=== PATIENT | male | born 1960 | race Caucasian/White ===

== ENCOUNTER → 2021-08-02 | Day surgery (SDC) | payer OTHER ==
[~2021-08-02] VITALS: Ht 175.3 cm; Wt 84.6 kg
[2021-08-02] VITALS (7 sets, daily range): BP systolic 124–147; BP diastolic 67–84
[~2021-08-02] MED LIST: BUPIVAcaine/PF 2.5 mg/ml (0.25%) 30ml vial ONE; NO HOME MEDS; cefazolin/dext.iso 2gm/50ml 50 ML IV ONE; dexamethasone sod phosphate 4mg/ml inj. ONE; ePHEDrine 50MG/ML INJ. ONE; famotidine 20mg tablet PO ONE; fentaNYL/PF 50MCG/1 ML 2ML syringe ONE; meperidine/PF 25mg/ml syringe IV PRN; midazolam 1 mg/ML 2ml injection ONE; morphine 2 MG/ML inj. syringe IV PRN; morphine 4 MG/ML inj SYRINge IV PRN; ondansetron/PF 4mg/2ml inj IV PRN; proCHLORperazine 10 MG/2 ml inj IV PRN; propofol inj 20 ML IV ONE; ringers solution, lacted 1,000 ML IV SCH; sevoflurane 250ml liquid IH ONE; vancomycin 1,000mg inj ONE
[2021-08-02 09:24] LABS: ALBUMIN 3.8 G/DL (3.4-5.0); ALKALINE PHOSPHATASE 94 IU/L (46-116); BLOOD UREA NITROGEN 13 MG/DL (7-18); CALCIUM 9.2 MG/DL (8.5-10.1); CHLORIDE 108 MMOL/L (99-107); PRE OP ALT 52 U/L (30-65); PRE OP ANION GAP 10 (8-16); PRE OP AST 31 U/L (10-37); PRE OP BILIRUB, TOTAL 0.4 MG/DL (0.0-1.0); PRE OP GLUCOSE 89 MG/DL (70-104); PRE OP POTASSIUM 3.9 MMOL/L (3.4-5.1); PRE OP SODIUM 144 MMOL/L (135-145); TOTAL CARBON DIOXIDE 26.5 MMOL/L (24-32); TOTAL PROTEIN 7.7 G/DL (6.4-8.2); eGFR 77 ML/MIN
--- NOTE | 2021-08-02 13:12 | NUR ---
Received from OR via [facility] , accompanied by Anesthesiologist JUAN CARLOS and report given by Anesthesiolgist. PATIENT WITH 20G PIV IN RIGHT UE RUNNING LR AT 100. DENIES PAIN AT THIS TIME. ANTERIOR LEFT SHOULDER/ CLAVICLE DRESSING IS CDI. VSS Addendum: 08/02/21 at 1322 by Abelardo Barr RN, RN Amended: Links added.
--- NOTE | 2021-08-02 13:12 | NUR ---
Received from OR via [facility] , accompanied by Anesthesiologist FANY and report given by Anesthesiolgist. PATIENT WITH 20G PIV IN RIGHT WRIST AREA. DRESSING IS CDI AND VSS. CLAVICLE DRESSING IS CDI. Addendum: 08/02/21 at 1321 by Abelardo Barr RN, RN Amended: Links added.
--- NOTE | 2021-08-02 14:02 | NUR ---
Report called to receiving nurse. Transferred via WHEELCHAIR WITH NO Belongings . Special Issues communicated to KHALIF Bergeron. AMBULATED FROM PHARMACY TO [facility] FOR TRANSPORT TO HALF-WAY. Addendum: 08/02/21 at 1408 by Abelardo Barr RN, RN Amended: Links added.
== END | disposition home or self-care (01) ==
LOC: PAS 07:58 → EEVIPCON 10:15
PROVIDERS: ATTEND Orthopaedic Surgery
DX: T84.298A Other mechanical complication of internal fixation device of other bones, initial encounter (principal); G89.18 Other acute postprocedural pain; N18.9 Chronic kidney disease, unspecified; F17.210 Nicotine dependence, cigarettes, uncomplicated; Z79.899 Other long term (current) drug therapy; Y83.8 Other surgical procedures as the cause of abnormal reaction of the patient, or of later complication, without mention of misadventure at the time of the procedure; Y92.89 Other specified places as the place of occurrence of the external cause
CPT/HCPCS: 20680; 23550; 36415; 64415; 76942; 80053; 82948; 93005; C1713; J1100; J2250; J2704; J3010; J3370; J3490; Z7506; Z7508; Z7512; A4215; A4565; A4618; A7000; J7120

== ENCOUNTER 2021-08-23 09:46 | Inpatient (IN) | payer OTHER ==
[2021-08-23] VITALS (17 sets, daily range): BP systolic 103–133; BP diastolic 57–82
[~2021-08-23] VITALS: Ht 175.3 cm; Wt 82.6 kg
[~2021-08-23 09:46] MED LIST changes: -BUPIVAcaine/PF 2.5 mg/ml (0.25%) 30ml vial ONE; -cefazolin/dext.iso 2gm/50ml 50 ML IV ONE; +cefazolin/dext.iso 2gm/50ml IV ONE; -dexamethasone sod phosphate 4mg/ml inj. ONE; -ePHEDrine 50MG/ML INJ. ONE; -fentaNYL/PF 50MCG/1 ML 2ML syringe ONE; -meperidine/PF 25mg/ml syringe IV PRN; -midazolam 1 mg/ML 2ml injection ONE; -morphine 2 MG/ML inj. syringe IV PRN; -morphine 4 MG/ML inj SYRINge IV PRN; -ondansetron/PF 4mg/2ml inj IV PRN; -proCHLORperazine 10 MG/2 ml inj IV PRN; -propofol inj 20 ML IV ONE; -ringers solution, lacted 1,000 ML IV SCH; -sevoflurane 250ml liquid IH ONE; -vancomycin 1,000mg inj ONE; +vancomycin 1,500 MG in NS 300ml IV soln IV ONE
[2021-08-23] MEDS: ringers solution, lacted 1,000 ML IV SCH ×2 (10:52→23:14)
[2021-08-23 11:30] LABS: BASOPHILS % (AUTO) 0.6 % (0-1); EOSINOPHILS # (AUTO) 0.1 X10'3 (0-0.9); HEMATOCRIT 38.6 % (42.0-52.0); HEMOGLOBIN 13.4 g/dl (14.0-17.9); LYMPHOCYTES # (AUTO) 1.2 X10'3 (1.1-4.8); MEAN CORPUSCULAR HEMOGLOBIN 33.2 PG (27.0-31.0); MEAN CORPUSCULAR HGB CONC 34.6 g/dL (33.0-36.5); MONOCYTES # (AUTO) 0.8 X10'3 (0-0.9); MONOCYTES % (AUTO) 11.6 % (2-12); NEUTROPHILS # (AUTO) 4.9 X10'3 (1.8-7.7); NEUTROPHILS % (AUTO) 68.8 % (42-75); PLATELET COUNT 332 X10'3 (140-440); RED BLOOD COUNT 4.02 X10'6 (4.70-6.10); RED CELL DISTRIBUTION WIDTH 12.5 % (11.5-14.5); WHITE BLOOD COUNT 7.2 X10'3 (4.5-11.0)
[2021-08-23 11:36] LABS: ALANINE AMINOTRANSFERASE 31 U/L (12-78); ALBUMIN 3.2 G/DL (3.4-5.0); ALBUMIN/GLOBULIN RATIO 0.7 (1.1-1.5); ALKALINE PHOSPHATASE 93 IU/L (46-116); ANION GAP 10 (8-16); ASPARTATE AMINO TRANSFERASE 22 U/L (10-37); BILIRUBIN,TOTAL 0.6 MG/DL (0.1-1.0); BLOOD UREA NITROGEN 9 MG/DL (7-18); BUN/CREATININE RATIO 10.8 (5.4-32.0); CHLORIDE 107 MMOL/L (99-107); CREATININE 0.83 MG/DL (0.60-1.10); GLUCOSE 88 MG/DL (70-104); POTASSIUM 4.2 MMOL/L (3.5-5.1); SODIUM 144 MMOL/L (135-145); TOTAL CARBON DIOXIDE 26.7 MMOL/L (24-32); TOTAL PROTEIN 7.6 G/DL (6.4-8.2); eGFR > 90 ML/MIN
[2021-08-23] MEDS ORDERED: ondansetron/PF 4mg/2ml inj IV PRN ×2 (13:05→14:40)
[2021-08-23] MEDS ORDERED: proCHLORperazine 10 MG/2 ml inj IV PRN (13:05)
[2021-08-23] MEDS ORDERED: meperidine/PF 25mg/ml syringe IV PRN ×3 (13:05)
[2021-08-23] MEDS ORDERED: ringers solution, lacted 1,000 ML IV SCH (13:05)
[2021-08-23] MEDS ORDERED: morphine 4 MG/ML inj SYRINge IV PRN (13:05)
[2021-08-23] MEDS ORDERED: morphine 2 MG/ML inj. syringe IV PRN (13:05)
[2021-08-23] MEDS ORDERED: fentaNYL/PF 50MCG/1 ML 2ML syringe ONE (13:44)
[2021-08-23] MEDS ORDERED: MIDAZolam 1 MG/ML 5ML VIAL ONE (13:44)
[2021-08-23] MEDS ORDERED: LIDOcaine 2% (20mg/ml) 5ml vial ONE (13:55)
[2021-08-23] MEDS ORDERED: propofol inj 20 ML IV ONE (13:55)
[2021-08-23] MEDS ORDERED: vancomycin 1,000mg inj ONE (14:17)
[2021-08-23] MEDS ORDERED: magnesium hydroxide 30ml (MOM) UD suspension PO PRN (14:40)
[2021-08-23] MEDS ORDERED: oxyCODONE IR 5mg (immed. release) tablet PO PRN (14:40)
[2021-08-23] MEDS ORDERED: diphenhydrAMINE 25mg capsule PO PRN ×2 (14:40)
[2021-08-23] MEDS ORDERED: bisacodyl 10mg suppository rectal RC PRN (14:40)
[2021-08-23] MEDS ORDERED: acetaminophen 325mg tablet PO PRN (14:40)
--- NOTE | 2021-08-23 14:43 | NUR ---
Received from OR via BED, 20G IV TO RIGHT HAND, WOUND VAC TO LEFT SHOULDER WITH 20ML BLOODY DRAINAGE, DSG CDI, +LEFT RADIAL PULSE, PT DENIES PAIN, accompanied by Anesthesiologist LOLY and report given by LOLY Anesthesiolgist. Addendum: 08/23/21 at 1605 by Jaylin Ruelas RN Amended: Links added.
[2021-08-23] MEDS: ceFAZolin/D5W- 1GM premix 50 ML IV SCH (16:00)
--- NOTE | 2021-08-23 17:43 | NUR ---
DRESSINGS INTACT. BED LOW, CALL LIGHT PRESENT AND 2 RAILS UP. RN PRESENT TO ACCEPT CARE OF PATIENT HAS MET ALL CRITERIA FOR TRANSFER TO THE SURGICAL FLOOR. VSS. PATIENT AND REPORT HAS BEEN CALLED. ALL QUESTIONS ANSWERED TO ACCEPTING RN. Addendum: 08/23/21 at 1749 by Jaylin Ruelas RN Amended: Links added.
--- NOTE | 2021-08-23 17:45 | NUR ---
Received report from YENY Mosqueda in recovery room.
--- NOTE | 2021-08-23 17:50 | NUR ---
Pt arrived to surgical floor via hospital bed, 2 guards at bedside. 1 bag of belongings.
--- NOTE | 2021-08-23 18:26 | NUR ---
Problems reprioritized. Patient report given, questions answered & plan of care reviewed with YENY Jesus.
--- NOTE | 2021-08-23 18:30 | NUR ---
Patient in room [facility]. I have received report from Sue SAINI and had the opportunity to ask questions and assume patient care.
[2021-08-23] MEDS ORDERED: vancomycin/NS 1 GM ADD-VANTAGE 250 ML IV SCH (20:00)
[2021-08-23] MEDS: potassium cl 20mEq in 1/2 NS 1,000 ML IV SCH ×2 (20:00→22:40)
[2021-08-23] MEDS: sennosides 8.6mg tablet PO SCH (21:11)
[2021-08-23] MEDS: acetaminophen 325mg tablet PO SCH (21:13)
[2021-08-23] MEDS: gabapentin 300mg capsule PO SCH (21:13)
[2021-08-24] VITALS: BP 110/50
[2021-08-24] MEDS: ceFAZolin/D5W- 1GM premix 50 ML IV SCH (01:00)
[2021-08-24] MEDS: acetaminophen 325mg tablet PO SCH ×4 (02:44→20:51)
[2021-08-24] MEDS: potassium cl 20mEq in 1/2 NS 1,000 ML IV SCH ×3 (03:56→22:40)
[2021-08-24 06:06] LABS: BASOPHILS % (AUTO) 0.3 % (0-1); EOSINOPHILS % (AUTO) 0.4 % (0-6); HEMATOCRIT 36.5 % (42.0-52.0); HEMOGLOBIN 12.5 g/dl (14.0-17.9); LYMPHOCYTES # (AUTO) 1.2 X10'3 (1.1-4.8); LYMPHOCYTES % (AUTO) 13.4 % (21-51); MEAN CORPUSCULAR HEMOGLOBIN 33.1 PG (27.0-31.0); MEAN CORPUSCULAR HGB CONC 34.1 g/dL (33.0-36.5); MEAN CORPUSCULAR VOLUME 96.9 FL (78-98); MEAN PLATELET VOLUME 8.2 FL (7.4-10.4); MONOCYTES # (AUTO) 0.9 X10'3 (0-0.9); MONOCYTES % (AUTO) 10.2 % (2-12); NEUTROPHILS # (AUTO) 6.5 X10'3 (1.8-7.7); NEUTROPHILS % (AUTO) 75.7 % (42-75); PLATELET COUNT 311 X10'3 (140-440); RED BLOOD COUNT 3.76 X10'6 (4.70-6.10); RED CELL DISTRIBUTION WIDTH 12.6 % (11.5-14.5); WHITE BLOOD COUNT 8.6 X10'3 (4.5-11.0)
--- NOTE | 2021-08-24 06:18 | NUR ---
Problems reprioritized. Patient report given, questions answered & plan of care reviewed with Elsie SAINI.
--- NOTE | 2021-08-24 06:32 | NUR ---
I have reviewed and agree with all interventions, assessments performed and documented by Joycelyn SAINI .
--- NOTE | 2021-08-24 06:45 | NUR ---
Patient in room [facility] 355B. I have received report from YENY ORTIZ and had the opportunity to ask questions and assume patient care.
[2021-08-24 07:00] VITALS: BP 108/60
[2021-08-24] MEDS: gabapentin 300mg capsule PO SCH ×3 (07:40→20:48)
[2021-08-24 11:00] VITALS: BP 115/55
[2021-08-24] MEDS: vancomycin/NS 1 GM ADD-VANTAGE 250 ML IV SCH (16:53)
--- NOTE | 2021-08-24 19:15 | NUR ---
Problems reprioritized. Patient report given, questions answered & plan of care reviewed with YENY MENON.
[2021-08-24] MEDS: sennosides 8.6mg tablet PO SCH (20:51)
[2021-08-25] VITALS (15 sets, daily range): BP systolic 104–156; BP diastolic 59–80
[2021-08-25] MEDS: acetaminophen 325mg tablet PO SCH ×3 (03:26→09:00)
[2021-08-25] MEDS: vancomycin/NS 1 GM ADD-VANTAGE 250 ML IV SCH (03:36)
[2021-08-25 05:54] LABS: BASOPHILS % (AUTO) 0.7 % (0-1); EOSINOPHILS # (AUTO) 0.2 X10'3 (0-0.9); EOSINOPHILS % (AUTO) 3.2 % (0-6); HEMATOCRIT 36.8 % (42.0-52.0); HEMOGLOBIN 12.6 g/dl (14.0-17.9); LYMPHOCYTES # (AUTO) 1.9 X10'3 (1.1-4.8); LYMPHOCYTES % (AUTO) 33.8 % (21-51); MEAN CORPUSCULAR HEMOGLOBIN 33.4 PG (27.0-31.0); MEAN CORPUSCULAR HGB CONC 34.3 g/dL (33.0-36.5); MEAN CORPUSCULAR VOLUME 97.5 FL (78-98); MONOCYTES # (AUTO) 0.7 X10'3 (0-0.9); MONOCYTES % (AUTO) 12.7 % (2-12); NEUTROPHILS # (AUTO) 2.8 X10'3 (1.8-7.7); NEUTROPHILS % (AUTO) 49.6 % (42-75); PLATELET COUNT 341 X10'3 (140-440); RED BLOOD COUNT 3.78 X10'6 (4.70-6.10); RED CELL DISTRIBUTION WIDTH 12.8 % (11.5-14.5); WHITE BLOOD COUNT 5.7 X10'3 (4.5-11.0)
--- NOTE | 2021-08-25 06:30 | NUR ---
I have received report from Joycelyn SAINI and had the opportunity to ask questions and assume patient care.
--- NOTE | 2021-08-25 06:47 | NUR ---
Problems reprioritized. Patient report given, questions answered & plan of care reviewed with [].
[2021-08-25] MEDS: gabapentin 300mg capsule PO SCH ×3 (08:00→21:00)
[2021-08-25] MEDS: potassium cl 20mEq in 1/2 NS 1,000 ML IV SCH (08:01)
[2021-08-25 09:52] LABS: ALANINE AMINOTRANSFERASE 30 U/L (12-78); ALBUMIN 2.8 G/DL (3.4-5.0); ALBUMIN/GLOBULIN RATIO 0.7 (1.1-1.5); ALKALINE PHOSPHATASE 80 IU/L (46-116); ANION GAP 6 (8-16); ASPARTATE AMINO TRANSFERASE 23 U/L (10-37); BILIRUBIN,TOTAL 0.2 MG/DL (0.1-1.0); BLOOD UREA NITROGEN 11 MG/DL (7-18); BUN/CREATININE RATIO 12.6 (5.4-32.0); CALCIUM 8.5 MG/DL (8.5-10.1); CHLORIDE 109 MMOL/L (99-107); CREATININE 0.87 MG/DL (0.60-1.10); GLUCOSE 88 MG/DL (70-104); POTASSIUM 4.2 MMOL/L (3.5-5.1); SODIUM 145 MMOL/L (135-145); TOTAL CARBON DIOXIDE 29.8 MMOL/L (24-32); TOTAL PROTEIN 6.7 G/DL (6.4-8.2); eGFR 90 ML/MIN
[2021-08-25] MEDS ORDERED: fentaNYL/PF 50MCG/1 ML 2ML syringe ONE (13:34)
[2021-08-25] MEDS ORDERED: midazolam 1 mg/ML 2ml injection ONE (13:34)
[2021-08-25] MEDS ORDERED: propofol inj 20 ML IV ONE (13:35)
[2021-08-25] MEDS ORDERED: LIDOcaine 1%/PF 5ML 10 MG/ML VIAL ONE (13:35)
[2021-08-25] MEDS ORDERED: dexamethasone sod phosphate 4mg/ml inj. ONE (13:49)
[2021-08-25] MEDS ORDERED: ondansetron/PF 4mg/2ml inj ONE (13:49)
[2021-08-25] MEDS ORDERED: vancomycin 1,000mg inj ONE (13:58)
--- NOTE | 2021-08-25 14:21 | NUR ---
Patient in OR Addendum: 08/25/21 at 1422 by Radha Wagner RN Amended: Links added.
--- NOTE | 2021-08-25 14:28 | NUR ---
Received from OR via ORTHO BED , accompanied by Anesthesiologist LOLY and report given by Anesthesiolgist. PATIENT WITH 20G PIV IN RIGHT UE RUNNING LR AT 100. DENIES PAIN . LEFT ANTERIOR SHOULDER DRESSING IS CDI. HAND AND FINGERS PWD. + CAP REFILL AND RADIAL PULSE PRESENT. SCDS DONNED. DENIES PAIN AT THIS TIME. Addendum: 08/25/21 at 1456 by Abelardo Barr RN, RN Amended: Links added.
[2021-08-25] MEDS ORDERED: acetaminophen 325mg tablet PO PRN (14:40)
[2021-08-25] MEDS ORDERED: ringers solution, lacted 1,000 ML IV SCH (15:05)
[2021-08-25] MEDS ORDERED: morphine 4 MG/ML inj SYRINge IV PRN (15:05)
[2021-08-25] MEDS ORDERED: morphine 2 MG/ML inj. syringe IV PRN (15:05)
[2021-08-25] MEDS ORDERED: ondansetron/PF 4mg/2ml inj IV PRN (15:05)
[2021-08-25] MEDS ORDERED: meperidine/PF 25mg/ml syringe IV PRN ×2 (15:05)
[2021-08-25] MEDS ORDERED: proCHLORperazine 10 MG/2 ml inj IV PRN (15:05)
[2021-08-25] MEDS: meperidine/PF 25mg/ml syringe IV PRN ×2 (15:08→17:03)
--- NOTE | 2021-08-25 16:28 | NUR ---
DRESSINGS INTACT. BED LOW, CALL LIGHT PRESENT AND 2 RAILS UP. RN PRESENT TO ACCEPT CARE OF PATIENT HAS MET ALL CRITERIA FOR TRANSFER TO THE SURGICAL/ANNETAT/PCU/ORTHO/ICU FLOOR. VSS. PATIENT AND REPORT HAS BEEN CALLED. ALL QUESTIONS ANSWERED TO ACCEPTING YENY RAMSAY. RN AWARE PATIENT HAS ARRIVED. Addendum: 08/25/21 at 1634 by Abelardo Barr RN, RN Amended: Links added.
[2021-08-25] MEDS: cefazolin/dext.iso 2gm/100ml 100 ML IV SCH (16:57)
--- NOTE | 2021-08-25 18:22 | NUR ---
Problems reprioritized. Patient report given, questions answered & plan of care reviewed with Joycelyn SAINI.
[2021-08-25] MEDS: sennosides 8.6mg tablet PO SCH (20:49)
[2021-08-25] MEDS: lactobacillus rhamnosus 10,000 MMU CELLS/CAPSULE PO SCH (20:49)
[2021-08-26] VITALS: BP 142/68
[2021-08-26] MEDS: cefazolin/dext.iso 2gm/100ml 100 ML IV SCH ×2 (01:58→07:27)
[2021-08-26] MEDS ORDERED: VANCOMYCIN LEVEL IV ONE (02:30)
[2021-08-26 06:08] LABS: BASOPHILS % (AUTO) 0.3 % (0-1); EOSINOPHILS # (AUTO) 0.1 X10'3 (0-0.9); EOSINOPHILS % (AUTO) 0.6 % (0-6); HEMATOCRIT 37.8 % (42.0-52.0); HEMOGLOBIN 13.2 g/dl (14.0-17.9); LYMPHOCYTES # (AUTO) 1.6 X10'3 (1.1-4.8); LYMPHOCYTES % (AUTO) 14.6 % (21-51); MEAN CORPUSCULAR HEMOGLOBIN 33.5 PG (27.0-31.0); MEAN CORPUSCULAR HGB CONC 34.9 g/dL (33.0-36.5); MEAN CORPUSCULAR VOLUME 96.1 FL (78-98); NEUTROPHILS # (AUTO) 8.3 X10'3 (1.8-7.7); NEUTROPHILS % (AUTO) 75.5 % (42-75); PLATELET COUNT 378 X10'3 (140-440); RED BLOOD COUNT 3.93 X10'6 (4.70-6.10); RED CELL DISTRIBUTION WIDTH 12.3 % (11.5-14.5); WHITE BLOOD COUNT 10.9 X10'3 (4.5-11.0)
[2021-08-26 06:22] LABS: ALANINE AMINOTRANSFERASE 30 U/L (12-78); ALBUMIN 2.8 G/DL (3.4-5.0); ALBUMIN/GLOBULIN RATIO 0.7 (1.1-1.5); ALKALINE PHOSPHATASE 82 IU/L (46-116); ANION GAP 7 (8-16); ASPARTATE AMINO TRANSFERASE 19 U/L (10-37); BILIRUBIN,TOTAL 0.2 MG/DL (0.1-1.0); BLOOD UREA NITROGEN 11 MG/DL (7-18); BUN/CREATININE RATIO 11.5 (5.4-32.0); CALCIUM 8.9 MG/DL (8.5-10.1); CHLORIDE 106 MMOL/L (99-107); CREATININE 0.96 MG/DL (0.60-1.10); GLUCOSE 90 MG/DL (70-104); POTASSIUM 4.1 MMOL/L (3.5-5.1); SODIUM 142 MMOL/L (135-145); TOTAL CARBON DIOXIDE 28.9 MMOL/L (24-32); TOTAL PROTEIN 6.8 G/DL (6.4-8.2); eGFR 80 ML/MIN
--- NOTE | 2021-08-26 06:36 | NUR ---
Patient in room [facility]. I have received report from Joycelyn SAINI and had the opportunity to ask questions and assume patient care.
[2021-08-26 07:00] VITALS: BP 164/78
[2021-08-26] MEDS: gabapentin 300mg capsule PO SCH ×3 (07:28→20:33)
[2021-08-26] MEDS: lactobacillus rhamnosus 10,000 MMU CELLS/CAPSULE PO SCH ×2 (07:28→20:33)
[2021-08-26] MEDS: oxyCODONE IR 5mg (immed. release) tablet PO PRN ×2 (12:39→21:19)
--- NOTE | 2021-08-26 13:47 | NUR ---
Left shoulder dressing changed, packing removed as per Dr. Tubbs written order. Sutures intact.
--- NOTE | 2021-08-26 14:17 | NUR ---
Ann Marie from [facility] stating they do not have enough Cefazolin to trat until getting more. They asked if we could send 2 doses. Spoke with Pharmacy who stated they are unable to dispense. Called Dr Tubbs to discuss possible alternatives. He wanted to keep med the same so gave order to remain over night. Am dose to be given prior to DC.
[2021-08-26] MEDS: ceFAZolin 2gm in dextrose, iso 50 ML IV SCH (16:17)
[2021-08-26 18:00] VITALS: BP 137/74
--- NOTE | 2021-08-26 18:14 | NUR ---
Problems reprioritized. Patient report given, questions answered & plan of care reviewed with Joycelyn SAINI.
[2021-08-26] MEDS: sennosides 8.6mg tablet PO SCH (20:33)
[2021-08-27] VITALS: BP 119/68
[2021-08-27] MEDS: ceFAZolin 2gm in dextrose, iso 50 ML IV SCH ×2 (00:02→07:48)
--- NOTE | 2021-08-27 06:38 | NUR ---
Report given to Eli the oncoming nurse ./
[2021-08-27 07:00] VITALS: BP 133/67
[2021-08-27] MEDS: gabapentin 300mg capsule PO SCH (07:48)
[2021-08-27] MEDS: lactobacillus rhamnosus 10,000 MMU CELLS/CAPSULE PO SCH (07:48)
--- NOTE | 2021-08-27 10:20 | NUR ---
Patient had final antibiotic and has been discharged into care of the [facility] the [facility]. Pt will f/u with [facility] who will use picc line for iv abx. According to marty, pt will stay in this part of the [facility] until picc line is dc'd. Arrangements were apparently made yesterday for dc but i was told that [facility] requested patient stay till today so they could get the appropriate medications ordered and obtained for patient. library clerical assistant Carrie says discharge was completed yesterday and as soon when antibiotic was done marty were free to leave with patient. Felix and patient accompanied down by staff.No other IV's besides picc line, pt is appropriate for transfer.
== END 2021-08-27 10:20 | DRG 858 ==
LOC: PAS 09:46 → EEVIPCON 12:30 → SUR 3N 14:43
PROVIDERS: ADMIT Orthopaedic Surgery; ATTEND Orthopaedic Surgery
PROC: 3E0T3BZ Introduction of Anesthetic Agent into Peripheral Nerves and Plexi, Percutaneous Approach (ICD-10-PCS; 2021-08-23)
PROC: 3E0T33Z Introduction of Anti-inflammatory into Peripheral Nerves and Plexi, Percutaneous Approach (ICD-10-PCS; 2021-08-23)
PROC: 0RPK04Z Removal of Internal Fixation Device from Left Shoulder Joint, Open Approach (ICD-10-PCS; principal; 2021-08-23 13:40)
PROC: 0XQ Anatomical Regions, Upper Extremities, Repair (ICD-10-PCS; 2021-08-25)
PROC: 02HV33Z Insertion of Infusion Device into Superior Vena Cava, Percutaneous Approach (ICD-10-PCS; 2021-08-25)
PROC: B548ZZA Ultrasonography of Superior Vena Cava, Guidance (ICD-10-PCS; 2021-08-25)
DX: T81.40XA Infection following a procedure, unspecified, initial encounter (principal); B95.61 Methicillin susceptible Staphylococcus aureus infection as the cause of diseases classified elsewhere; Y83.8 Other surgical procedures as the cause of abnormal reaction of the patient, or of later complication, without mention of misadventure at the time of the procedure; Y92.89 Other specified places as the place of occurrence of the external cause
CPT/HCPCS: 36573; Z7506; Z7508; 36415; 80053; 82948; 85025; 85610; 87070; 87075; 87077; 87186; A4215; A4565; A4618; A6222; A6253; A6266; A6449; A6550; A7000; G0378; J0690; J1100; J2001; J2175; J2250; J2405; J2704; J3010; J3370; J3480; J7040; J7120